=== PATIENT | male | born 1955 | race Caucasian/White ===

== ENCOUNTER → 2017-02-07 | Outpatient (CLI) | payer OTHER ==
[~2017-02-07] MED LIST: ASPI-101 PO; CELE1CAP4 PO; CRES5TAB PO; DOCU10CA PO; FISH120012 PO; GLUCTAB6 PO; MILKSUS PO; MULTCAP PO; MYLASUS16 PO; MYLI40DR PO; NEUR600T PO; OMEP20CA3 PO; PROBCAP4 PO; ROXI1TAB2 PO; calcium with D OR; tylenol PO; vitamin C OR; vitamin D OR; vitamin E OR
[2017-02-07 13:47] LABS: MEAN CORPUSCULAR HEMOGLOBIN 31.9 pg (27.0-33.0); MEAN CORPUSCULAR HGB CONC 35.2 g/dl (32.0-36.5); MEAN CORPUSCULAR VOLUME 90.7 fl (80.0-96.0); RED CELL DISTRIBUTION WIDTH 12.4 % (11.5-14.5); WHITE BLOOD COUNT 8.7 K/mm3 (4.0-10.0)
[2017-02-07 14:05] LABS: ALBUMIN 3.7 GM/DL (3.2-5.2); ALBUMIN/GLOBULIN RATIO 1.28 (1.00-1.93); ALKALINE PHOSPHATASE 66 U/L (45-117); ALT/SGPT 28 U/L (12-78); ANION GAP 9 MEQ/L (8-16); AST/SGOT 18 U/L (15-37); BILIRUBIN,TOTAL 0.4 MG/DL (0.2-1.0); BLOOD UREA NITROGEN 17 MG/DL (7-18); CALCIUM LEVEL 8.9 MG/DL (8.8-10.2); CARBON DIOXIDE LEVEL 28 MEQ/L (21-32); CHLORIDE LEVEL 106 MEQ/L (98-107); CHOLESTEROL LEVEL 158 MG/DL (<200); CREATININE FOR GFR 0.96 MG/DL (0.70-1.30); GLOMERULAR FILTRATION RATE > 60.0 (>49); GLUCOSE, FASTING 150 MG/DL (80-110); POTASSIUM SERUM 4.1 MEQ/L (3.5-5.1); SODIUM LEVEL 143 MEQ/L (136-145); TOTAL PROTEIN 6.6 GM/DL (6.4-8.2); TRIGLYCERIDES LEVEL 144 MG/DL (<150)
== END ==
LOC: M WUC 11:01
PROVIDERS: ATTEND Family Medicine
DX: E11.9 Type 2 diabetes mellitus without complications (principal)

== ENCOUNTER → 2018-01-20 | Outpatient (CLI) | payer OTHER ==
[2018-01-20 13:16] LABS: HEMATOCRIT 40.4 % (42.0-52.0); MEAN CORPUSCULAR HEMOGLOBIN 31.3 pg (27.0-33.0); MEAN CORPUSCULAR HGB CONC 34.7 g/dl (32.0-36.5); MEAN CORPUSCULAR VOLUME 90.2 fl (80.0-96.0); PLATELET COUNT, AUTOMATED 145 10^3/uL (150-450); RED BLOOD COUNT 4.48 10^6/uL (4.30-6.10); RED CELL DISTRIBUTION WIDTH 12.2 % (11.5-14.5)
[2018-01-20 13:19] LABS: ADD MANUAL DIFFER YES; DIFF SLIDE NUMBER 256; POSITIVE DIFF POS FLAG; POSITIVE MORPH POS FLAG; WHITE BLOOD COUNT 9.5 10^3/uL (4.0-10.0)
[2018-01-20 13:49] LABS: ANISOCYTOSIS 1+; ATYPICAL LYMPH 6 % (0-5); EOSINOPHILS 3 % (0-5); LYMPHOCYTES 64 % (16-52); MONOCYTES 7 % (0-8); NEUTROPHILS 20 % (35-75); PLATELET ESTIMATE DECREASED (NORMAL)
[2018-01-20 14:11] LABS: ALBUMIN 3.9 GM/DL (3.2-5.2); ALKALINE PHOSPHATASE 56 U/L (45-117); ALT/SGPT 28 U/L (12-78); ANION GAP 9 MEQ/L (8-16); AST/SGOT 17 U/L (7-37); BILIRUBIN,TOTAL 0.6 MG/DL (0.2-1.0); BLOOD UREA NITROGEN 14 MG/DL (7-18); CALCIUM LEVEL 8.8 MG/DL (8.8-10.2); CARBON DIOXIDE LEVEL 28 MEQ/L (21-32); CHLORIDE LEVEL 105 MEQ/L (98-107); CHOLESTEROL LEVEL 140 MG/DL (<200); CHOLESTEROL RISK RATIO 2.978 (<5); CREATININE FOR GFR 0.94 MG/DL (0.70-1.30); GLOMERULAR FILTRATION RATE > 60.0 (>49); GLUCOSE, FASTING 119 MG/DL (70-100); HDL CHOLESTEROL 47 MG/DL (>40); LDL CHOLESTEROL 74.4 MG/DL (<100); NON-HDL-C 93 MG/DL; POTASSIUM SERUM 4.6 MEQ/L (3.5-5.1); SODIUM LEVEL 142 MEQ/L (136-145); TOTAL PROTEIN 6.5 GM/DL (6.4-8.2); TRIGLYCERIDES LEVEL 93 MG/DL (<150)
[2018-01-20 18:55] LABS: ESTIMATED AVERAGE GLUCOSE 148 MG/DL (60-110); HEMOGLOBIN A1c 6.8 %
[2018-01-21 13:03] LABS: CREATININE, URINE 65.8 MG/DL; MALB URINE SIEMENS < 5.0 MG/L; MAU/CREAT RATIO 7.5 MCG/MG (0.0-30.0)
== END ==
LOC: M WUC 11:16
DX: E11.9 Type 2 diabetes mellitus without complications (principal)
CPT/HCPCS: 80053

== ENCOUNTER 2018-09-30 11:28 | Day surgery (SDC) | payer OTHER ==
[~2018-09-30] VITALS: Ht 175.3 cm; Wt 88.5 kg
[~2018-09-30 11:28] MED LIST changes: -ASPI-101 PO; +ASPI-225 PO; +BIMA01SOL OU; +CALC600T31 PO; +CRES10TA32 PO; +FISH1000 PO; +MILK120011 PO; -MILKSUS PO; +MULT1TAB10 PO; +NS 1,000 ML IV ONE; +VITA400C7 PO; +VITA400D PO; +VITA500T PO; +VITATAB11 PO
[2018-09-30] MEDS ORDERED: PROPOFOL 200 MG/20 ML VIAL As Ordered ONE ×2 (14:09→14:15)
[2018-09-30] MEDS ORDERED: LIDOCAINE 2% INJ 100 MG/5 ML SDV (FOR ANES.) As Ordered ONE (14:09)
--- NOTE | 2018-09-30 14:17 | ROOR ---
Patient Name: Gulshan Vuong Procedure Date: 09/30/2018 2:05 PM Date of : 1955 Age: 62 Room: [facility] Gender: Male Note Status: Finalized Procedure: Upper Endoscopy + Biopsies Indications: Heartburn, Exclusion of Lugo's esophagus Providers: Chalino Levin MD Referring MD: Keegan Morgan MD Requesting Provider: Medicines: Monitored Anesthesia Care Complications: No immediate complications. Procedure: Pre-Anesthesia Assessment: - The heart rate, respiratory rate, oxygen saturations, blood pressure, adequacy of pulmonary ventilation, and response to care were monitored throughout the procedure. The Endoscope was introduced through the mouth, and advanced to the second part of duodenum. The upper GI endoscopy was accomplished without difficulty. The patient tolerated the procedure well. Findings: The Z-line was regular and was found 40 cm from the incisors. Multiple biopsies were obtained with cold forceps for evaluation to rule out Lugo's Esophagus randomly at the gastroesophageal junction. A small hiatal hernia was present. No other significant abnormalities were identified in a careful examination of the stomach. The exam of the duodenum was otherwise normal. Impression: - Z-line regular, 40 cm from the incisors. - Small hiatal hernia. - Multiple biopsies were obtained at the gastroesophageal junction. - The examination was otherwise normal. Recommendation: - Patient has a contact number available for emergencies. The signs and symptoms of potential delayed complications were discussed with the patient. Return to normal activities tomorrow. Written discharge instructions were provided to the patient. - High fiber diet. - Discharge patient to home. - Follow an antireflux regimen. - Continue present medications. - Await pathology results. - Telephone GI clinic for pathology results in 1 week. - Return to referring physician. - The findings and recommendations were discussed with the patient's family. Chalino Levin MD Chalino Levin MD 09/30/2018 2:17:14 PM This report has been signed electronically. Number of Addenda: 0 Note Initiated On: 09/30/2018 2:05 PM Estimated Blood Loss: Estimated blood loss: none.
--- NOTE | 2018-09-30 14:29 | ROOR ---
Patient Name: Gulshan Vuong Procedure Date: 09/30/2018 2:05 PM Date of : 1955 Age: 62 Room: [facility] Gender: Male Note Status: Finalized Procedure: Total Colonoscopy to Cecum Indications: Screening for colorectal malignant neoplasm Providers: hCalino Levin MD Referring MD: Keegan Morgan MD Requesting Provider: Medicines: Monitored Anesthesia Care Complications: No immediate complications. Procedure: Pre-Anesthesia Assessment: - The heart rate, respiratory rate, oxygen saturations, blood pressure, adequacy of pulmonary ventilation, and response to care were monitored throughout the procedure. The Colonoscope was introduced through the anus and advanced to the cecum, identified by appendiceal orifice and ileocecal valve. The colonoscopy was performed without difficulty. The patient tolerated the procedure well. The quality of the bowel preparation was excellent. Findings: The perianal and digital rectal examinations were normal. Non-bleeding internal hemorrhoids were found during retroflexion. The hemorrhoids were small and Grade I (internal hemorrhoids that do not prolapse). A few small-mouthed diverticula were found in the recto-sigmoid colon and sigmoid colon. The exam was otherwise without abnormality on direct and retroflexion views. Impression: - Non-bleeding internal hemorrhoids. - Diverticulosis in the recto-sigmoid colon and in the sigmoid colon. - The examination was otherwise normal on direct and retroflexion views. - No specimens collected. - The exam was otherwise normal to the cecum. Recommendation: - Patient has a contact number available for emergencies. The signs and symptoms of potential delayed complications were discussed with the patient. Return to normal activities tomorrow. Written discharge instructions were provided to the patient. - High fiber diet. - Discharge patient to home. - Continue present medications. - Repeat colonoscopy in 10 years for screening purposes. - Return to referring physician. - The findings and recommendations were discussed with the patient's family. Chalino Levin MD Chalino Levin MD 09/30/2018 2:28:48 PM This report has been signed electronically. Number of Addenda: 0 Note Initiated On: 09/30/2018 2:05 PM Estimated Blood Loss: Estimated blood loss: none.
[2018-09-30 15:00] VITALS: BP 158/70
== END 2018-09-30 15:11 | disposition home or self-care (01) ==
LOC: M OPP 11:28
PROVIDERS: ATTEND Internal Medicine Gastroenterology
DX: Z12.11 Encounter for screening for malignant neoplasm of colon (principal); R12 Heartburn; K64.0 First degree hemorrhoids; K57.30 Diverticulosis of large intestine without perforation or abscess without bleeding; K44.9 Diaphragmatic hernia without obstruction or gangrene; E11.9 Type 2 diabetes mellitus without complications; Z88.0 Allergy status to penicillin; Z79.82 Long term (current) use of aspirin; Z79.899 Other long term (current) drug therapy

== ENCOUNTER → 2018-10-21 | Outpatient (CLI) | payer OTHER ==
[~2018-10-21] MED LIST changes: -NS 1,000 ML IV ONE
--- NOTE | 2018-10-25 13:30 | HOLTMON ---
[facility] Test Date: 2018-10-21 Pat Name: TIFFANIE CROWE Department: Room: - Gender: Male Jailer: JOSH EVANGELISTA : 1955 Requested By: GAEL Tomlin [facility] Order Number: [id number] Reading MD: Adalberto Diallo Interpretive Statements Predominantly sinus rhythm with heart rates ranging from 52 bpm to 105 bpm with an average heart rate of 64 bpm. Infrequent PACs including 2 atrial couplets. No supraventricular tachycardia or wide complex tachycardia. Rare isolated PVCs. No atrial fibrillation. No progressive or high-grade AV block or sinus arrest. 4:09 PM, palpitations on exercise bicycle correlated with sinus rhythm 74 bpm. 7:29 AM, in bed, palpitations, sinus bradycardia 56 bpm. 9:24 AM, up for the day, sinus bradycardia 59 bpm. Adalberto Diallo MD, FACC, MARISOL Electronically Signed On 10-25-2018 13:30:19 EDT by Adalberto Diallo
== END ==
LOC: M EKG 10:55
PROVIDERS: ATTEND Family Medicine
DX: R00.2 Palpitations (principal)

== ENCOUNTER → 2019-02-08 | Outpatient (CLI) | payer OTHER ==
[~2019-02-08] MED LIST changes: +CRES10TA PO; -CRES10TA32 PO; -OMEP20CA3 PO; +OMEP20CA4 PO
[2019-02-08 13:43] LABS: HEMATOCRIT 38.8 % (42.0-52.0); HEMOGLOBIN 13.2 g/dl (13.5-17.5); MEAN CORPUSCULAR VOLUME 91.1 fl (80.0-96.0); PLATELET COUNT, AUTOMATED 155 10^3/uL (150-450); RED BLOOD COUNT 4.26 10^6/uL (4.30-6.10)
[2019-02-08 13:44] LABS: ALBUMIN 3.6 GM/DL (3.2-5.2); ALT/SGPT 26 U/L (12-78); BILIRUBIN,TOTAL 0.4 MG/DL (0.2-1.0); BLOOD UREA NITROGEN 16 MG/DL (7-18); CALCIUM LEVEL 9.2 MG/DL (8.8-10.2); CARBON DIOXIDE LEVEL 30 MEQ/L (21-32); CHLORIDE LEVEL 108 MEQ/L (98-107); CHOLESTEROL LEVEL 146 MG/DL (<200); CHOLESTEROL RISK RATIO 2.862 (<5); CREATININE FOR GFR 0.98 MG/DL (0.70-1.30); GLOMERULAR FILTRATION RATE > 60.0 (>49); GLUCOSE, FASTING 128 MG/DL (70-100); HDL CHOLESTEROL 51 MG/DL (>40); LDL CHOLESTEROL 76 MG/DL (<100); NON-HDL-C 95 MG/DL; POTASSIUM SERUM 4.2 MEQ/L (3.5-5.1); SODIUM LEVEL 142 MEQ/L (136-145); TOTAL PROTEIN 6.3 GM/DL (6.4-8.2); TRIGLYCERIDES LEVEL 94 MG/DL (<150)
[2019-02-08 13:46] LABS: WHITE BLOOD COUNT 8.9 10^3/uL (4.0-10.0)
[2019-02-08 14:07] LABS: HEMOGLOBIN A1c 7.1 %
[2019-02-08 14:26] LABS: ATYPICAL LYMPH 1 % (0-5); EOSINOPHILS 4 % (0-5); LYMPHOCYTES 67 % (16-52); MONOCYTES 5 % (0-8); NEUTROPHILS 23 % (35-75)
[2019-02-08 14:27] LABS: PLATELET ESTIMATE NORMAL (NORMAL); SMUDGE CELLS 1+
[2019-02-08 21:14] LABS: MALB URINE SIEMENS 7.3 MG/L; MAU/CREAT RATIO 6.6 MCG/MG (0.0-30.0)
== END ==
LOC: M WUC 11:55
PROVIDERS: ATTEND Family Medicine
DX: E11.9 Type 2 diabetes mellitus without complications (principal)

== ENCOUNTER → 2020-04-06 | Outpatient (CLI) | payer OTHER ==
[~2020-04-06] MED LIST changes: -ASPI-225 PO; +ASPI81TA78 PO; +OMEP1CAP73 PO; -OMEP20CA4 PO; +VITA-243 PO; -VITA500T PO
[2020-04-06 15:03] LABS: HEMATOCRIT 42.2 % (42.0-52.0); HEMOGLOBIN 14.1 g/dl (13.5-17.5); MEAN CORPUSCULAR HEMOGLOBIN 31.3 pg (27.0-33.0); MEAN CORPUSCULAR HGB CONC 33.4 g/dl (32.0-36.5); MEAN CORPUSCULAR VOLUME 93.8 fl (80.0-96.0); PLATELET COUNT, AUTOMATED 161 10^3/uL (150-450); WHITE BLOOD COUNT 11.1 10^3/uL (4.0-10.0)
[2020-04-06 15:37] LABS: ALBUMIN 4.2 GM/DL (3.2-5.2); ALT/SGPT 31 U/L (12-78); BILIRUBIN,TOTAL 0.8 MG/DL (0.2-1.0); BLOOD UREA NITROGEN 16 MG/DL (7-18); CALCIUM LEVEL 9.6 MG/DL (8.8-10.2); CARBON DIOXIDE LEVEL 28 MEQ/L (21-32); CHLORIDE LEVEL 105 MEQ/L (98-107); CHOLESTEROL LEVEL 186 MG/DL (<200); CHOLESTEROL RISK RATIO 3.576 (<5); CREATININE FOR GFR 0.96 MG/DL (0.70-1.30); GLOMERULAR FILTRATION RATE > 60.0 (>49); GLUCOSE, FASTING 124 MG/DL (70-100); HDL CHOLESTEROL 52 MG/DL (>40); LDL CHOLESTEROL 113 MG/DL (<100); NON-HDL-C 134 MG/DL; POTASSIUM SERUM 4.6 MEQ/L (3.5-5.1); SODIUM LEVEL 138 MEQ/L (136-145); TRIGLYCERIDES LEVEL 104 MG/DL (<150)
[2020-04-06 15:40] LABS: MALB URINE SIEMENS < 5.0 MG/L; MAU/CREAT RATIO 4.6 MCG/MG (0.0-30.0)
[2020-04-06 18:25] LABS: HEMOGLOBIN A1c 6.4 %
== END ==
LOC: M WUC 11:32
PROVIDERS: ATTEND Family Medicine
DX: E11.9 Type 2 diabetes mellitus without complications (principal); Z12.5 Encounter for screening for malignant neoplasm of prostate

== ENCOUNTER → 2020-11-27 | Outpatient (CLI) | payer MEDICARE, OTHER ==
[~2020-11-27] MED LIST changes: +CALC600T36 PO; +CHOL400T PO; +ROSU5TAB5 PO; +VITA400C53 PO; +VITATAB73 PO; +VITMTA PO
[2020-11-27 15:55] LABS: ALT/SGPT 28 U/L (12-78); BILIRUBIN,TOTAL 0.6 MG/DL (0.2-1.0); BLOOD UREA NITROGEN 14 MG/DL (7-18); CALCIUM LEVEL 8.7 MG/DL (8.8-10.2); CARBON DIOXIDE LEVEL 30 MEQ/L (21-32); CHLORIDE LEVEL 105 MEQ/L (98-107); CHOLESTEROL LEVEL 167 MG/DL (<200); CHOLESTEROL RISK RATIO 2.982 (<5); CREATININE FOR GFR 0.85 MG/DL (0.70-1.30); GLOMERULAR FILTRATION RATE > 60.0 (>49); GLUCOSE, FASTING 107 MG/DL (70-100); HDL CHOLESTEROL 56 MG/DL (>40); LDL CHOLESTEROL 96 MG/DL (<100); NON-HDL-C 111 MG/DL; POTASSIUM SERUM 4.7 MEQ/L (3.5-5.1); SODIUM LEVEL 141 MEQ/L (136-145); TOTAL PROTEIN 6.6 GM/DL (6.4-8.2); TRIGLYCERIDES LEVEL 77 MG/DL (<150)
[2020-11-27 16:00] LABS: HEMOGLOBIN A1c 6.7 %
== END ==
LOC: M PLALAB 14:10
PROVIDERS: ATTEND Family Medicine
DX: E11.9 Type 2 diabetes mellitus without complications (principal)

== ENCOUNTER 2020-12-10 12:51 | Observation (INO) | payer MEDICARE, OTHER ==
[~2020-12-10 12:51] MED LIST changes: -CALC600T36 PO; -CHOL400T PO; -ROSU5TAB5 PO; -VITA400C53 PO; -VITATAB73 PO; -VITMTA PO
--- NOTE | 2020-12-10 13:29 | REP ---
INDICATION: Syncope. COMPARISON: None. TECHNIQUE: 4.5 mm contiguous transaxial sections were obtained from the skull base to the cerebral convexities with thin cuts through the posterior fossa without the administration of intravenous contrast. FINDINGS: The ventricles and sulci are consistent with the patient's age. There are no extra-axial fluid collections. There is no mass effect. The deep cerebral white matter is consistent with the patient's age. The orbital and petrous structures, cerebellopontine angles, and posterior fossa are unremarkable. The sella turcica, cavernous, and paracavernous structures are essentially unremarkable. The visualized portions of the paranasal sinuses and mastoid air cells are clear. Images of the skull base show no gross abnormality. IMPRESSION: Essentially unremarkable CT examination of the brain. <Electronically signed by Ugo Medina > 12/10/20 [id number]
--- NOTE | 2020-12-10 13:32 | REP ---
INDICATION: Syncope/near-syncope. COMPARISON: 09/18/2009 TECHNIQUE: Portable FINDINGS: The technique utilized in obtaining the radiograph has magnified the cardiac silhouette and accentuated the interstitial markings. The superior mediastinal structures are midline. The cardiac silhouette is unremarkable in size, shape, and position. The diaphragmatic surfaces of the lungs are regular, and the costophrenic angles are clear. The pulmonary streeter are clear. The imaged osseous structures are intact. IMPRESSION: There is no acute cardiopulmonary disease. <Electronically signed by Ugo Medina > 12/10/20 [id number]
[2020-12-10 13:37] LABS: BASO % 0.2 % (0.0-1.0); EOS # 0.2 10^3/uL (0.0-0.5); HEMATOCRIT 41.3 % (42.0-52.0); HEMOGLOBIN 14.1 g/dl (13.5-17.5); LYMPH # 5.9 10^3/uL (1.5-5.0); LYMPH % 38.3 % (24.0-44.0); MEAN CORPUSCULAR HEMOGLOBIN 31.7 pg (27.0-33.0); MEAN CORPUSCULAR HGB CONC 34.1 g/dl (32.0-36.5); MEAN CORPUSCULAR VOLUME 92.8 fl (80.0-96.0); MONO # 0.8 10^3/uL (0.0-0.8); MONO % 5.2 % (2.0-8.0); NEUTROPHILS # 8.5 10^3/uL (1.5-8.5); PLATELET COUNT, AUTOMATED 135 10^3/uL (150-450); RED BLOOD COUNT 4.45 10^6/uL (4.30-6.10)
[2020-12-10 13:38] LABS: WHITE BLOOD COUNT 15.5 10^3/uL (4.0-10.0)
[2020-12-10 14:15] LABS: BLOOD UREA NITROGEN 16 MG/DL (7-18); CALCIUM LEVEL 8.8 MG/DL (8.8-10.2); CARBON DIOXIDE LEVEL 29 MEQ/L (21-32); CHLORIDE LEVEL 107 MEQ/L (98-107); CK-MB VALUE MASS 2.3 NG/ML (<3.6); CPK CREATINE PHOSPHOKINASE 225 U/L (39-308); CREATININE FOR GFR 0.86 MG/DL (0.70-1.30); GLOMERULAR FILTRATION RATE > 60.0 (>49); GLUCOSE, FASTING 136 MG/DL (70-100); MAGNESIUM LEVEL 1.8 MG/DL (1.8-2.4); MB/CK RELATIVE INDEX 1.02 (< OR =4); POTASSIUM SERUM 4.1 MEQ/L (3.5-5.1); SODIUM LEVEL 140 MEQ/L (136-145); TROPONIN I < 0.02 NG/ML (< 0.10)
[2020-12-10] MEDS ORDERED: ISOVUE-370 76% 100ML VIAL As Ordered ONE (14:37)
--- NOTE | 2020-12-10 15:26 | REP ---
INDICATION: syncope, elevated d-dimer r/o PE COMPARISON: None. TECHNIQUE: CT angiography of the chest after the intravenous administration of 75 cc Isovue 370. FINDINGS: There is excellent visualization of the pulmonary arterial vasculature. There are no focal filling defects present that would be considered consistent with acute pulmonary emboli. The thoracic aorta is within normal limits, however, spray artifact is seen arising from high density contrast in the superior vena cava affecting multiple images. There is no mediastinal or hilar adenopathy. There are no pleural or pericardial effusions. The imaged upper abdomen and imaged osseous structures are within normal limits. Evaluation of the lung streeter shows minimal biapical pleuroparenchymal scarring. There is a small area of irregular pleural thickening in the right upper lobe medially. There are no abnormal nodules. IMPRESSION: 1. No evidence of a pulmonary embolus. 2. No definite aortic abnormality, however, limitations as described above. 3. Area of pleural thickening in the right upper lobe with no priors for comparison. Three-month follow-up is suggested. <Electronically signed by Ugo Medina > 12/10/20 [id number]
[2020-12-10 16:07] LABS: CK-MB VALUE MASS 1.9 NG/ML (<3.6); CPK CREATINE PHOSPHOKINASE 222 U/L (39-308); MB/CK RELATIVE INDEX 0.86 (< OR =4); TROPONIN I < 0.02 NG/ML (< 0.10)
[2020-12-10] MEDS ORDERED: ACETAMINOPHEN TAB 650MG DOSE (2X325MG) PO PRN (16:55)
[2020-12-10 17:13] LABS: RSV AMPLIFICATION NEGATIVE (NEGATIVE)
[2020-12-10] MEDS ORDERED: CHOL400T PO (17:24)
[2020-12-10] MEDS ORDERED: VITMTA PO (17:24)
[2020-12-10] MEDS ORDERED: ROSU5TAB5 PO (17:24)
[2020-12-10] MEDS ORDERED: CALC600T36 PO (17:24)
[2020-12-10] MEDS ORDERED: VITATAB73 PO (17:24)
[2020-12-10] MEDS ORDERED: VITA400C53 PO (17:24)
[2020-12-10] MEDS ORDERED: CALCIUM CARBONATE 500 MG CHEW U/D PO PRN (17:30)
--- NOTE | 2020-12-10 17:57 | HPEPDOC ---
General Date of Admission December 10, 2020 at 12:52 Date of Service: December 10, 2020 Chief Complaint The patient is a 65-year-old male admitted with a reason for visit of Syncope. Source: Patient History of Present Illness Mr. Vuong is a 65 year old male with HTN, HLD, and DM type 2 who is here after syncopal event. He has been in good health generally. He had DM type 2 controlled by diet and exercise. 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 This morning he did not feel well and was feeling nauseous. He was going to the bathroom to wash up when he suddenly felt like going pass out. He held on to the sink, and then collapse. He remembers going down. He denies lip bitting, urinary incontinence, or fecal incontinence. He was lying on the ground. He felt that he could not stand up for about 5 minutes. His called an ambulance. After 5 minutes, he got up, put on clothes, and walked down to see the EMS personal who took him to the ED. While here, vitals have been stable. No fever, hypotension, or hypoxia. WBC is elevated at 15.5 with absolute lymphocytes at 6. Lymphocytes have been elevated in the past. Peripheral smears have been ordered. Patient will need to follow up with oncology outpatient. Otherwise, patient was concern about tick bite since he had lyme in the past (treated) and he was working on [employer] yesterday. Lyme screen ordered. Patient will be placed in observation for syncope. Home Medications Scheduled Ascorbic Acid (Vitamin C) 500 Mg Tab, 500 MG PO BID, (Reported) Aspirin (Aspirin EC) 81 Mg Tab, 162 MG PO QHS, (Reported) Bimatoprost (Lumigan) 50 Drop/2.5 Ml Negar, 1 DROP OU QHS, (Reported) Calcium Carbonate (Calcium) 600 Mg Tablet, 600 MG PO DAILY, (Reported) Cholecalciferol (Vitamin D3) (Vitamin D3) 10 Mcg Tablet, 10 MCG PO DAILY, (Reported) Gluc Benoit/Chondro Benoit A/Vit C/Mn (Glucosamine Chondroitin Tab) 1 Tab Tab, 1 TAB PO DAILY, (Reported) Multivitamins (Thera M Plus Tablet) 1 Each Tablet, 1 TAB PO DAILY, (Reported) [place]-3 Fatty Acids/Fish Oil (Fish Oil 1,000 mg Capsule) 1,000 Mg Cap, 2,000 MG PO DAILY, (Reported) Omeprazole (Omeprazole) 20 Mg Cap, 20 MG PO DAILY, (Reported) Rosuvastatin Calcium (Rosuvastatin Calcium) 5 Mg Tablet, 5 MG PO QHS, (Reported) Vitamin B Complex (Vitamin B Complex) 1 Each Tablet, 1 TAB PO DAILY, (Reported) Vitamin E (Vitamin E) 400 Unit Capsule, 400 UNIT PO DAILY, (Reported) Allergies Coded Allergies: Penicillins (Verified Allergy, Unknown, 12/10/20) Past Medical History Medical History 1. Hypercholesterolemia 2. GERD 3. Palpations (had heart monitor which demonstrated PAC) 4. History of lyme disease (treated) 5. DM type 2 controlled by diet and exercise Surgical History 1. Repair of broken wrist 2. Cyst removed from left thumb 3. Removal of left index finger 4. Repair of chain saw cut chin and upper lip 5. Right shoulder surgery Family History Father: Stroke Mother: Heart disease Social History * Smoker: Denies Alcohol: Denies Drugs: denies A-FIB/CHADSVASC A-FIB History Current/History of A-Fib/PAF?: No Review of Systems Constitutional: Denies: Chills, Fever Eyes: Denies: Vision change ENT: Denies: Head Aches Skin: Denies: Rash Pulmonary: Denies: Dyspnea, Cough Cardiovascular: Denies: Chest Pain Gastrointestinal: Reports: Nausea (before syncope); Denies: Abdominal Pain Genitourinary: Denies: Dysuria Hematologic: Denies: Bruising Neurological: Denies: Numbness Psych: Reports: Anxiety Physical Examination General Exam: Positive: Alert, Cooperative Eye Exam: Positive: EOMI; Negative: Sclera icteric ENT Exam: Positive: Atraumatic Neck Exam: Positive: Supple Chest Exam: Positive: Clear to auscultation Heart Exam: Positive: Rate Normal, Regular Rhythm Abdomen Exam: Positive: Normal bowel sounds, Soft; Negative: Tenderness Extremity Exam: Negative: Edema Neuro Exam: Positive: Normal Speech Psych Exam: Positive: Mental status NL, Mood NL Vital Signs Vital Signs Date Time Temp Pulse Resp B/P (MAP) Pulse Ox O2 Delivery O2 Flow Rate FiO2 12/10/20 15:15 64 167/76 (106) 99 Room Air 12/10/20 14:30 18 12/10/20 12:54 96.6 Laboratory Data Labs 24H Laboratory Tests 2 12/10/20 13:27: Immature Granulocyte % (Auto) 0.3, Neutrophils (%) (Auto) 55.0, Lymphocytes (%) (Auto) 38.3, Monocytes (%) (Auto) 5.2, Eosinophils (%) (Auto) 1.0, Basophils (%) (Auto) 0.2, Neutrophils # (Auto) 8.5, Lymphocytes # (Auto) 5.9H, Monocytes # (Auto) 0.8, Eosinophils # (Auto) 0.2, Basophils # (Auto) 0.0, Nucleated Red Blood Cells % (auto) 0.3H, Differential Slide Review Report, Peripheral Blood Smear Path Consult PERIPHERAL SMEAR, D-Dimer, Quantitative 536.64H, Anion Gap 4L, Glomerular Filtration Rate > 60.0, Calcium Level 8.8, Magnesium Level 1.8, Total Creatine Kinase 225, Creatine Kinase MB 2.3, Creatine Kinase MB Relative Index 1.02, Troponin I < 0.02, Thyroid Stimulating Hormone (TSH) 1.570 12/10/20 13:30: Bedside Glucose (Misc Panel) 142H 12/10/20 15:34: Total Creatine Kinase 222, Creatine Kinase MB 1.9, Creatine Kinase MB Relative Index 0.86, Troponin I < 0.02 12/10/20 16:24: Coronavirus (COVID-19)(PCR) NEGATIVE, Influenza Type A (RT-PCR) NEGATIVE, Influenza Type B (RT-PCR) NEGATIVE, Respiratory Syncytial Virus (PCR) NEGATIVE CBC/BMP Laboratory Tests 12/10/20 13:27 Assessment/Plan Mr. Vuong is a 65 year old male with HTN, HLD, and DM type 2 who is here after syncopal event. Patient will monitored overnight on telemetry and echocardiogram will be obtained tomorrow morning. Patient has persistent elevated lymphocytes. Peripheral smear ordered. Patient should follow up outpatient with oncology. Plan / VTE VTE Prophylaxis Ordered?: Yes Plan Plan 1. Syncope -Patient had presyncopal symptoms -Will monitor on telemetry overnight and order echocardiogram tomorrow morning 2. Lymphocytosis -Peripheral smear ordered -Patient will need to follow up outpatient with oncology 3. GERD -Continue omeprazole 20mg qD and calcium carbonate daily 4. Hyperlipidemia -Continue rosuvastatin 5. Glaucoma -We do not have bimatoprost. Subsitute with latanoprost 6. DVT ppx -TEDs Disposition: Possible discharge tomorrow if no events on telemetry and patient has echocardiogram. AIMEE SWAN DO December 10, 2020 17:56
[2020-12-10 19:58] VITALS: BP 157/69
[2020-12-10] MEDS: ASCORBIC ACID 500 MG TAB PO SCH (20:30)
[2020-12-10] MEDS ORDERED: ROSUVASTATIN 10 MG TAB (CRESTOR) PO SCH (21:00)
[2020-12-10] MEDS ORDERED: ASPIRIN 81MG ENTERIC TABLET PO SCH (21:00)
[2020-12-10] MEDS ORDERED: LATANOPROST 0.005% OPHTH SOLN 2.5 ML OU SCH (21:00)
[2020-12-11 06:00] VITALS: BP 104/42
[2020-12-11 07:14] LABS: ALBUMIN 3.3 GM/DL (3.2-5.2); ALT/SGPT 24 U/L (12-78); BILIRUBIN,TOTAL 0.8 MG/DL (0.2-1.0); BLOOD UREA NITROGEN 15 MG/DL (7-18); CALCIUM LEVEL 8.3 MG/DL (8.8-10.2); CARBON DIOXIDE LEVEL 27 MEQ/L (21-32); CHLORIDE LEVEL 106 MEQ/L (98-107); CREATININE FOR GFR 0.98 MG/DL (0.70-1.30); GLOMERULAR FILTRATION RATE > 60.0 (>49); GLUCOSE, FASTING 111 MG/DL (70-100); POTASSIUM SERUM 3.6 MEQ/L (3.5-5.1); SODIUM LEVEL 141 MEQ/L (136-145); TOTAL PROTEIN 5.8 GM/DL (6.4-8.2)
[2020-12-11 08:15] LABS: HEMATOCRIT 39.9 % (42.0-52.0); HEMOGLOBIN 13.2 g/dl (13.5-17.5); MEAN CORPUSCULAR HEMOGLOBIN 30.6 pg (27.0-33.0); MEAN CORPUSCULAR HGB CONC 33.1 g/dl (32.0-36.5); MEAN CORPUSCULAR VOLUME 92.6 fl (80.0-96.0); PLATELET COUNT, AUTOMATED 125 10^3/uL (150-450); RED BLOOD COUNT 4.31 10^6/uL (4.30-6.10); WHITE BLOOD COUNT 11.7 10^3/uL (4.0-10.0)
[2020-12-11] MEDS: ASCORBIC ACID 500 MG TAB PO SCH (08:22)
[2020-12-11] MEDS ORDERED: OMEPRAZOLE 20 MG CAP PO SCH (09:00)
[2020-12-11] MEDS ORDERED: MULTIVITAMINS/MINERALS THERAP 1 TAB PO SCH (09:00)
[2020-12-11 14:00] VITALS: BP 141/66
--- NOTE | 2020-12-11 19:58 | ECGEPIP ---
[facility] - ED Test Date: 2020-12-10 Pat Name: TIFFANIE CROWE Department: Room: - Gender: Male Cell Tester: BHARGAV : 1955 Requested By: Arnav Tomlin Order Number: [id number] Reading MD: Janet Bellamy Measurements Intervals [place] Rate: 67 P: 48 MS: 160 QRS: 3 QRSD: 80 T: 35 QT: 384 QTc: 405 Interpretive Statements Normal sinus rhythm similar 04/22/15 Electronically Signed on 12-11-2020 19:58:35 EDT by Janet Bellamy
--- NOTE | 2020-12-11 20:00 | ECGEPIP ---
[facility] - ED Test Date: 2020-12-10 Pat Name: TIFFANIE CROWE Department: Room: [place] [address] Gender: Male Director Cardiology: gorge : 1955 Requested By: Arnav Tomlin Order Number: [id number] Reading MD: Janet Bellamy Measurements Intervals [place] Rate: 65 P: 61 IL: 148 QRS: 6 QRSD: 96 T: 63 QT: 396 QTc: 411 Interpretive Statements Normal sinus rhythm similar 12/10/20 Electronically Signed on 12-11-2020 20:00:14 EDT by Janet Bellamy
--- NOTE | 2020-12-12 00:04 | DS.PDOC ---
Discharge Summary General Date of Admission December 10, 2020 at 12:52 Date of Discharge December 11, 2020 Discharge Summary PROCEDURES PERFORMED DURING STAY: [None]. ADMITTING DIAGNOSES: 1. . DISCHARGE DIAGNOSES: 1. . COMPLICATIONS/CHIEF COMPLAINT: Syncope. HISTORY OF PRESENT ILLNESS: . HOSPITAL COURSE: . DISCHARGE MEDICATIONS: Please see below. ALLERGIES: Please see below. PHYSICAL EXAMINATION ON DISCHARGE: VITAL SIGNS: Please see below. GENERAL: HEENT: NECK: CARDIOVASCULAR EXAMINATION: RESPIRATORY EXAMINATION: ABDOMINAL EXAMINATION: EXTREMITIES: SKIN: NEUROLOGICAL EXAMINATION: PSYCHIATRIC EXAMINATION: LABORATORY DATA: Please see below. IMAGING: PROGNOSIS: ACTIVITY: [As tolerated]. DIET: DISCHARGE PLAN: DISPOSITION: Home, Self-Care. DISCHARGE INSTRUCTIONS: 1. . ITEMS TO FOLLOWUP ON ON OUTPATIENT: 1. . DISCHARGE CONDITION: [Stable]. TIME SPENT ON DISCHARGE: Greater than minutes. Vital Signs/I&Os Vital Signs Date Time Temp Pulse Resp B/P (MAP) Pulse Ox O2 Delivery O2 Flow Rate FiO2 12/11/20 14:00 98.5 62 16 141/66 (91) 98 Room Air I&O- Last 24 Hours up to 6 AM 12/12/20 06:00 Intake Total 120 ml Output Total 0 ml Balance 120 ml Laboratory Data Labs 24H Laboratory Tests 2 12/11/20 06:12: Nucleated Red Blood Cells % (auto) 0.3H 12/11/20 06:16: Anion Gap 8, Glomerular Filtration Rate > 60.0, Calcium Level 8.3L, Total Bilirubin 0.8, Aspartate Amino Transf (AST/SGOT) 16, Alanine Aminotransferase (ALT/SGPT) 24, Alkaline Phosphatase 41L, Total Protein 5.8L, Albumin 3.3, Albumin/Globulin Ratio 1.3 CBC/BMP Laboratory Tests 12/11/20 06:12 12/11/20 06:16 Discharge Medications Scheduled Ascorbic Acid (Vitamin C) 500 Mg Tab, 500 MG PO BID, (Reported) Aspirin (Aspirin EC) 81 Mg Tab, 162 MG PO QHS, (Reported) Bimatoprost (Lumigan) 50 Drop/2.5 Ml Negar, 1 DROP OU QHS, (Reported) Calcium Carbonate (Calcium) 600 Mg Tablet, 600 MG PO DAILY, (Reported) Cholecalciferol (Vitamin D3) (Vitamin D3) 10 Mcg Tablet, 10 MCG PO DAILY, (Reported) Gluc Benoit/Chondro Benoit A/Vit C/Mn (Glucosamine Chondroitin Tab) 1 Tab Tab, 1 TAB PO DAILY, (Reported) Multivitamins (Thera M Plus Tablet) 1 Each Tablet, 1 TAB PO DAILY, (Reported) [place]-3 Fatty Acids/Fish Oil (Fish Oil 1,000 mg Capsule) 1,000 Mg Cap, 2,000 MG PO DAILY, (Reported) Omeprazole (Omeprazole) 20 Mg Cap, 20 MG PO DAILY, (Reported) Rosuvastatin Calcium (Rosuvastatin Calcium) 5 Mg Tablet, 5 MG PO QHS, (Reported) Vitamin B Complex (Vitamin B Complex) 1 Each Tablet, 1 TAB PO DAILY, (Reported) Vitamin E (Vitamin E) 400 Unit Capsule, 400 UNIT PO DAILY, (Reported) Allergies Coded Allergies: Penicillins (Verified Allergy, Unknown, 12/10/20) AIMEE SWAN DO December 12, 2020 00:03
--- NOTE | 2020-12-12 08:16 | ECHO ---
DATE OF PROCEDURE: 12/11/2020 Age: 65 Gender: Male Height: 177 cm Weight: 93 kg REFERRING PHYSICIAN: Cristhian Meadows DO INDICATION: Syncope. MEASUREMENTS: IVS 0.9 cm LV 4.8 cm LVPW 0.8 cm LA 3.1 cm Aorta 3.6 cm IVC 2.2 cm Mitral E wave velocity 62 cm/s Mitral A wave 51 cm/s E prime septal 11.9 cm/s E prime lateral 13.7 cm/s FINDINGS: This study is of fair technical quality with very limited visualization. Underlying sinus rhythm. Normal LV size with probably normal LV systolic function based on difficult visualization. I estimate EF around 60% to 65%. No segmental wall motion abnormalities are appreciated. Right ventricle was also poorly visualized, but grossly appears normal. Both atria appear normal. Aortic, mitral, and tricuspid valves were reasonably well seen and based on 2D imaging, there are no significant abnormalities. Pulmonic valve was not visualized. No pericardial effusion is noted. Inferior vena cava is mildly dilated and there is minimal collapse with inspiration indicative of elevated central venous pressure. Aortic root and aortic arch appear normal. Abdominal aorta was not well seen. Doppler interrogation reveals competent aortic valve. There is trace mitral insufficiency. Tricuspid valve is also competent. Mitral inflow pattern and tissue Doppler imaging of the mitral annulus revealed normal diastolic function. CONCLUSIONS: 1. Study is of fair technical quality, underlying sinus rhythm. 2. Normal LV size with normal LV systolic and diastolic function. 3. No significant valvular disease. 4. This study is suggestive of at least mildly elevated central venous pressure. Unable to estimate pulmonary artery pressure. COMMENTS: No findings to explain etiology of syncope. MTDD
[2020-12-12 16:09] LABS: Lyme Disease IgG/IgM Antibodie <0.91 ISR (0.00-0.90); Lyme Disease IgM Ab Quantitati <0.80 index (0.00-0.79)
== END 2020-12-11 16:35 | disposition home or self-care (01) ==
LOC: M ED 12:51 → M ED INP 12:52 → M MSPAV 19:59
PROVIDERS: ADMIT Internal Medicine; ATTEND Internal Medicine
DX: R55 Syncope and collapse (principal); D72.820 Lymphocytosis (symptomatic); K21.9 Gastro-esophageal reflux disease without esophagitis; E78.5 Hyperlipidemia, unspecified; H40.9 Unspecified glaucoma; I10 Essential (primary) hypertension; E11.9 Type 2 diabetes mellitus without complications; I49.1 Atrial premature depolarization; Z86.19 Personal history of other infectious and parasitic diseases; Z79.899 Other long term (current) drug therapy; Z79.82 Long term (current) use of aspirin; Z88.0 Allergy status to penicillin
CPT/HCPCS: 36415; 70450; 71045; 71275; 80048; 80053; 82550; 82553; 83735; 84443; 84484; 85025; 85027; 85379; 86617; 87631; 93005; 93041; 93306; 94760; 99285; Q9967

== ENCOUNTER → 2021-03-12 | Outpatient (CLI) | payer MEDICARE, OTHER ==
[~2021-03-12] MED LIST changes: +CALC600T36 PO; +CHOL400T PO; +NAPR220C14 PO; +ROSU5TAB5 PO; +VITA400C53 PO; +VITATAB73 PO; +VITMTA PO
== END ==
LOC: M RAD 11:05
PROVIDERS: ATTEND Family Medicine
DX: R91.8 Other nonspecific abnormal finding of lung field (principal)

== ENCOUNTER → 2021-09-17 | Outpatient (CLI) | payer MEDICARE, OTHER | LOC: M RAD 09:38 | PROVIDERS: ATTEND Family Medicine | DX: R91.8 Other nonspecific abnormal finding of lung field (principal) ==

== ENCOUNTER → 2022-05-22 | Outpatient (CLI) | payer MEDICARE, OTHER ==
[~2022-05-22] MED LIST changes: -GLUCTAB6 PO; +GLUCTAB7 PO; +XALA0.007 OP
[2022-05-22 16:20] LABS: HEMATOCRIT 41.3 % (42.0-52.0); HEMOGLOBIN 13.9 g/dl (13.5-17.5); MEAN CORPUSCULAR HGB CONC 33.7 g/dl (32.0-36.5); MEAN CORPUSCULAR VOLUME 94.9 fl (80.0-96.0); PLATELET COUNT, AUTOMATED 174 10^3/uL (150-450); RED BLOOD COUNT 4.35 10^6/uL (4.30-6.10); WHITE BLOOD COUNT 12.8 10^3/uL (4.0-10.0)
[2022-05-22 16:55] LABS: HEMOGLOBIN A1c 6.4 %
[2022-05-22 17:03] LABS: ALBUMIN 4.4 GM/DL (3.2-5.2); ALT/SGPT 41 U/L (12-78); BILIRUBIN,TOTAL 0.8 MG/DL (0.2-1.0); BLOOD UREA NITROGEN 13 MG/DL (7-18); CALCIUM LEVEL 9.8 MG/DL (8.8-10.2); CARBON DIOXIDE LEVEL 30 MEQ/L (21-32); CHLORIDE LEVEL 102 MEQ/L (98-107); CHOLESTEROL LEVEL 182 MG/DL (<200); CHOLESTEROL RISK RATIO 3.084 (<5); CREATININE FOR GFR 0.99 MG/DL (0.70-1.30); GLOMERULAR FILTRATION RATE > 60.0 (>49); GLUCOSE, FASTING 130 MG/DL (70-100); HDL CHOLESTEROL 59 MG/DL (>40); LDL CHOLESTEROL 98 MG/DL (<100); NON-HDL-C 123 MG/DL; POTASSIUM SERUM 4.4 MEQ/L (3.5-5.1); PROSTATIC SPECIFIC AG MONITOR 1.31 NG/ML (< 4.00); SODIUM LEVEL 139 MEQ/L (136-145); TRIGLYCERIDES LEVEL 125 MG/DL (<150)
== END ==
LOC: M PLALAB 12:28
PROVIDERS: ATTEND Family Medicine
DX: E11.9 Type 2 diabetes mellitus without complications (principal); Z12.5 Encounter for screening for malignant neoplasm of prostate

== ENCOUNTER → 2023-05-22 | Outpatient (CLI) | payer MEDICARE, OTHER ==
[~2023-05-22] MED LIST changes: +cognium PO
[2023-05-22 15:06] LABS: HEMATOCRIT 42.6 % (42.0-52.0); HEMOGLOBIN 14.3 g/dl (13.5-17.5); MEAN CORPUSCULAR HEMOGLOBIN 32.3 pg (27.0-33.0); MEAN CORPUSCULAR HGB CONC 33.6 g/dl (32.0-36.5); MEAN CORPUSCULAR VOLUME 96.2 fl (80.0-96.0); PLATELET COUNT, AUTOMATED 151 10^3/uL (150-450); RED BLOOD COUNT 4.43 10^6/uL (4.30-6.10); WHITE BLOOD COUNT 12.8 10^3/uL (4.0-10.0)
[2023-05-22 15:49] LABS: ATYPICAL LYMPH 45 % (0-5); EOSINOPHILS 1 % (0-3); LYMPHOCYTES 36 % (16-44); MONOCYTES 2 % (0-5); NEUTROPHILS 16 % (28-66)
[2023-05-22 15:50] LABS: PLATELET ESTIMATE NORMAL (NORMAL); SMUDGE CELLS 2+
== END ==
LOC: M WUC 10:36
PROVIDERS: ATTEND Family Medicine
DX: E11.9 Type 2 diabetes mellitus without complications (principal); Z12.5 Encounter for screening for malignant neoplasm of prostate

== ENCOUNTER → 2024-05-26 | Outpatient (CLI) | payer MEDICARE, OTHER ==
[~2024-05-26] MED LIST changes: +LATANOPROST; +ROSU5TAB40 PO; -ROSU5TAB5 PO
[2024-05-26 17:38] LABS: BASO % 0.3 % (0.0-1.0); CREATININE, URINE 249.2 MG/DL; CREATININE,RANDOM URINE 249.2 MG/DL; EOS # 0.2 10^3/uL (0.0-0.5); EOS % 1.8 % (0.0-3.0); HEMATOCRIT 39.3 % (42.0-52.0); HEMOGLOBIN 13.5 g/dl (13.5-17.5); LYMPH # 8.7 10^3/uL (1.5-5.0); LYMPH % 71.9 % (24.0-44.0); MAU/CREAT RATIO 2.4 MCG/MG (0.0-30.0); MEAN CORPUSCULAR HEMOGLOBIN 31.8 pg (27.0-33.0); MEAN CORPUSCULAR HGB CONC 34.4 g/dl (32.0-36.5); MEAN CORPUSCULAR VOLUME 92.7 fl (80.0-96.0); MONO # 0.5 10^3/uL (0.0-0.8); MONO % 3.9 % (2.0-8.0); NEUTROPHILS # 2.7 10^3/uL (1.5-8.5); NEUTROPHILS % 21.9 % (36.0-66.0); PLATELET COUNT, AUTOMATED 208 10^3/uL (150-450); RED BLOOD COUNT 4.24 10^6/uL (4.30-6.10); WHITE BLOOD COUNT 12.2 10^3/uL (4.0-10.0)
[2024-05-26 17:49] LABS: ALBUMIN 3.7 G/DL (3.2-5.2); ALKALINE PHOSPHATASE 71 U/L (46-116); ALT/SGPT 22 U/L (7.0-40); AST/SGOT 13 U/L (<34); BILIRUBIN,TOTAL 0.7 MG/DL (0.3-1.2); BLOOD UREA NITROGEN 21 MG/DL (9-23); CALCIUM LEVEL 9.3 MG/DL (8.3-10.6); CARBON DIOXIDE LEVEL 28 MMOL/L (20-31); CHLORIDE LEVEL 105 MMOL/L (98-107); CHOLESTEROL LEVEL 167 MG/DL (<200); CHOLESTEROL RISK RATIO 3.57 (<5); CREATININE FOR GFR 0.95 MG/DL (0.70-1.30); GLOMERULAR FILTRATION RATE > 60.0 (>49); GLUCOSE, FASTING 147 MG/DL (74-106); HDL CHOLESTEROL 46.7 MG/DL (>40); LDL CHOLESTEROL 95.1 MG/DL (<100); NON-HDL-C 120.3 MG/DL; POTASSIUM SERUM 4.1 MMOL/L (3.5-5.1); PSA SCREENING 1.27 NG/ML (< 4.00); SODIUM LEVEL 136 MMOL/L (136-145); TOTAL PROTEIN 6.1 G/DL (5.7-8.2); TRIGLYCERIDES LEVEL 126 MG/DL (<150)
[2024-05-26 18:45] LABS: HEMOGLOBIN A1c 7.2 % (4.0-6.0)
== END ==
LOC: M WUC 11:08
PROVIDERS: ATTEND Family Medicine
DX: Z12.5 Encounter for screening for malignant neoplasm of prostate (principal); E11.9 Type 2 diabetes mellitus without complications
CPT/HCPCS: 36415; 80053; 80061; 82043; 82570; 83036; 85025; G0103

== ENCOUNTER → 2025-06-20 | Outpatient (CLI) | payer MEDICARE, OTHER ==
[~2025-06-20] MED LIST changes: -ROSU5TAB40 PO; +ROSU5TAB49 PO
[2025-06-20 15:11] LABS: PROSTATIC SPECIFIC AG MONITOR 1.16 NG/ML (< 4.00)
[2025-06-20 15:17] LABS: ALT/SGPT 34.0 U/L (7.0-40); AST/SGOT 35.0 U/L (<34); CALCIUM LEVEL 8.7 MG/DL (8.3-10.6); CARBON DIOXIDE LEVEL 26.0 MMOL/L (20-31); CHLORIDE LEVEL 106.0 MMOL/L (98-107); CHOLESTEROL LEVEL 172.0 MG/DL (<200); CHOLESTEROL RISK RATIO 3.16 (<5); CREATININE FOR GFR 1.08 MG/DL (0.70-1.30); GLOMERULAR FILTRATION RATE 74.3 (>49); LDL CHOLESTEROL 98.1 MG/DL (<100); NON-HDL-C 117.7 MG/DL; POTASSIUM SERUM 4.5 MMOL/L (3.5-5.1); SODIUM LEVEL 141.0 MMOL/L (136-145); TRIGLYCERIDES LEVEL 98.0 MG/DL (<150)
[2025-06-20 15:18] LABS: BASO # 0.0 10^3/uL (0.0-0.2); BASO % 0.3 % (0.0-1.0); EOS # 0.3 10^3/uL (0.0-0.5); EOS % 2.3 % (0.0-3.0); LYMPH # 9.4 10^3/uL (1.5-5.0); LYMPH % 74.0 % (24.0-44.0); MONO # 0.6 10^3/uL (0.0-0.8); MONO % 4.4 % (2.0-8.0); NEUTROPHILS # 2.4 10^3/uL (1.5-8.5); NEUTROPHILS % 18.9 % (36.0-66.0); PLATELET COUNT, AUTOMATED 173 10^3/uL (150-450)
[2025-06-20 15:43] LABS: ESTIMATED AVERAGE GLUCOSE 157.0 MG/DL (60-110)
== END ==
LOC: M WUC 09:01
PROVIDERS: ATTEND Family Medicine
DX: Z12.5 Encounter for screening for malignant neoplasm of prostate (principal); E11.9 Type 2 diabetes mellitus without complications; R97.20 Elevated prostate specific antigen [PSA]

== ENCOUNTER → 2025-06-21 | Outpatient (REF) | payer MEDICARE, OTHER ==
[2025-06-21 13:35] LABS: CREATININE, URINE 204.6 MG/DL
[2025-06-21 13:36] LABS: MALB URINE SIEMENS 3.0 MG/L
[2025-06-21 20:55] LABS: MAU/CREAT RATIO 1.5 MCG/MG (0.0-30.0)
== END ==
LOC: M LAB REF 12:05
PROVIDERS: ATTEND Family Medicine
DX: E11.9 Type 2 diabetes mellitus without complications (principal)